=== PATIENT | female | born 1975 | race Hispanic/Latino ===

== ENCOUNTER → 2018-03-30 | Outpatient (CLI) | payer OTHER ==
--- NOTE | 2018-03-30 15:54 | Diagnostic Imaging Report ---
ADDENDUM #1 Indication: Pain Signed by: Dr. Stephane Nicole MD on 04/10/2018 1:08 PM ORIGINAL REPORT EXAM: RUQ ULTRASOUND Date: 03/30/2018 2:55 PM Indication: Comparison: None Technique: Sonographic evaluation of the right upper quadrant. Color doppler was utilized to supplement evaluation. FINDINGS: LIVER: No focal lesion is identified. The liver measures 11.5 cm in the right midclavicular line. Echotexture is normal. BILIARY: The gallbladder has a normal appearance, without evidence for gallstones, gallbladder wall thickening or pericholecystic fluid. The common bile duct measures 0.4 cm. PANCREAS: The pancreas is incompletely visualized due to overlying bowel gas, but no abnormality identified involving the visualized portions of the pancreas. RIGHT KIDNEY: Measures 9.8 cm in length. No hydronephrosis or solid mass lesion identified. PERITONEUM: No free fluid. VASCULATURE: Aorta: Visualized portions appear unremarkable. Interior vena cava: Visualized portions appear unremarkable. Portal Vein: Nondilated with hepatopedal flow. IMPRESSION: Unremarkable RUQ ultrasound. Signed by: Dr. Stephane Nicole MD on 03/30/2018 3:51 PM
== END ==
LOC: US 14:36
PROVIDERS: ATTEND Emergency Medicine
DX: R10.9 Unspecified abdominal pain (principal)
CPT/HCPCS: 76705